=== PATIENT | male | born 1995 | race African-American/Black ===

== ENCOUNTER 2017-03-21 17:47 | Emergency (ER) | payer BC ==
[2017-03-21] MEDS ORDERED: Ketorolac INJ* 60 MG/2 ML VIAL IM ONE (19:48)
--- NOTE | 2017-03-21 20:43 | ED ---
Skin Complaint - HPI Summary HPI Summary: Patient is and presents with multiple small firm areas of redness under his right armpit that have become increasingly painful over the last week. He has had these in the past, but they typically resolve on their own. He denies increased redness, drainage or fevers. He does not have swelling in the right upper extremity. - History of Current Complaint Chief Complaint: EDRashSkinAbscess Time Seen by Provider: 03/21/17 19:01 Stated Complaint: LUMPS UNDER RIGHT ARM Hx Obtained From: Patient, Family/Engineer Onset/Duration: Started Weeks Ago - 1, Atraumatic, Still Present Timing: Constant Onset Severity: Mild Current Severity: Severe Pain Intensity: 8 Skin Location: Arm - right armpit Character: Redness, Painful Aggravating Symptom(s): Touch Alleviating Symptom(s): Nothing Associated Signs & Symptoms: Tenderness - Allergy/Home Medications Allergies/Adverse Reactions: Allergies Allergy/AdvReac Type Severity Reaction Status Date / Time No Known Allergies Allergy Verified 03/21/17 19:35 PMH/Surg Hx/FS Hx/Imm Hx Previously Healthy: Yes Endocrine/Hematology History: Denies: Hx Diabetes Cardiovascular History: Denies: Hx Congestive Heart Failure, Hx Hypertension History: Denies: Hx Renal Disease Infectious Disease History: No Infectious Disease History: Denies: Traveled Outside the [place] in Last 30 Days - Family History Known Family History: Positive: None - Social History Occupation: Employed Part-time Lives: With Family Alcohol Use: None Substance Use Type: Reports: None Smoking Status (MU): Never Smoked Tobacco Review of Systems Negative: Fever, Chills Positive: Other - multiple 1 cm firm areas of erythema without fluctuance or drainage in right armpit All Other Systems Reviewed And Are Negative: Yes Physical Exam Triage Information Reviewed: Yes Vital Signs On Initial Exam: Initial Vitals Temp Pulse Resp BP Pulse Ox 98.5 F 65 18 133/51 100 03/21/17 17:59 03/21/17 17:59 03/21/17 17:59 03/21/17 17:59 03/21/17 17:59 Vital Signs Reviewed: Yes Appearance: Positive: Well-Appearing, Well-Nourished, Pain Distress Skin: Positive: Warm, Skin Color Reflects Adequate Perfusion, Dry, Soft, Erythema @ - multiple 1 cm firm areas of erythema without fluctuance or drainage in right armpit Head/Face: Positive: Normal Head/Face Inspection Eyes: Positive: EOMI, VANESSA, Conjunctiva Clear ENT: Positive: Hearing grossly normal Neck: Positive: Supple, Nontender, No Lymphadenopathy Respiratory/Lung Sounds: Positive: Breath Sounds Present Cardiovascular: Positive: RRR Musculoskeletal: Positive: Strength/ROM Intact. Negative: Edema Left, Edema Right Neurological: Positive: Sensory/Motor Intact, Alert, Oriented to Person Place, Time, NV Bundle Intact Distally, Normal Gait Psychiatric: Positive: Affect/Mood Appropriate AVPU Assessment: Alert Diagnostics - Vital Signs Vital Signs Temp Pulse Resp BP Pulse Ox 03/21/17 19:29 98.5 F 65 16 133/51 99 03/21/17 17:59 98.5 F 65 18 133/51 100 - Laboratory Lab Statement: Any lab studies that have been ordered have been reviewed, and results considered in the medical decision making process. - Ultrasound No standard instances Ultrasound Interpretation: No Acute Changes Ultrasound Interpretation Completed By: Radiologist Course/Dx - Differential Diagnoses - Skin Complaint Differential Diagnoses: Abscess, Allergic Reaction, Cellulitis, Contact Dermatitis, Local Allergic Reaction, MRSA, Urticaria, Other - Diagnoses Provider Diagnoses: Hidradenitis suppurativa of right axilla Discharge - Discharge Plan Condition: Stable Disposition: HOME Prescriptions: Clindamycin CAP* [Cleocin 150 MG CAP*] 450 mg PO TID #90 cap Patient Education Materials: Hidradenitis Suppurativa (ED) Referrals: No Primary Care Phys,NOPCP [Primary Care Provider] - [facility] [place]Outside] Additional Instructions: Please call the number provided to establish care with a regular provider for follow-up care. Take the antibiotics prescribed until they are completely gone and begin taking Ibuprofen 600mg three times daily with meals tomorrow evening for the next 3-5 days to decrease pain and swelling. Apply warm compresses several times daily to encourage any drainage. Return to the emergency department if symptoms worsen.
--- NOTE | 2017-03-21 21:18 | RAD ---
Indication: Right axilla swelling. Real-time sonography in the right axilla was performed. Heterogeneous tissue is noted in the subcutaneous tissue where there is soft tissue swelling. This is consistent with a phlegmon. No definite drainable fluid collections are noted. IMPRESSION: PHLEGMONOUS CHANGE IN THE SUBCUTANEOUS TISSUE. NO DEFINITE DRAINABLE FLUID COLLECTIONS ARE NOTED.
[2017-03-21] MEDS ORDERED: Clindamycin CAP* 150 MG PO ONE (21:22)
[2017-03-21 22:35] VITALS: BP 134/70
== END 2017-03-21 22:00 | disposition home or self-care (01) ==
LOC: ED 17:47
DX: L73.2 Hidradenitis suppurativa (principal)
CPT/HCPCS: 99282; A9270-GY; J1885

== ENCOUNTER 2017-03-28 05:29 | Emergency (ER) | payer BC ==
[2017-03-28 06:09] VITALS: BP 124/68
[2017-03-28] MEDS ORDERED: Neomyc/Polym/HC 1% OTIC SUSP* **OTIC RIGHT EAR ONE (07:19)
--- NOTE | 2017-03-28 08:31 | ED ---
Callum Faust Salem, scribed for Jb Isbell MD on 03/28/17 at 0719 . Throat Pain/Nasal Congestion - HPI Summary HPI Summary: Patient is a 21 y/o M who presents to the ED with a right ear complaint. He reports numbness and blockage of the right ear for the past 24 hours. He also reports jaw pain and loss of hearing, but denies rhinorrhea, chest congestion, cough, or sore throat. He states that pain is enough to keep him up at night. PMHx of swimmers ear. 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 - History of Current Complaint Chief Complaint: EDEarPain Time Seen by Provider: 03/28/17 07:11 Hx Obtained From: Patient Onset/Duration: Gradual Onset, Lasting Days, Still Present Severity: Moderate Associated Signs And Symptoms: Positive: Negative Cough: None - Allergies/Home Medications Allergies/Adverse Reactions: Allergies Allergy/AdvReac Type Severity Reaction Status Date / Time No Known Allergies Allergy Verified 03/21/17 19:35 PMH/Surg Hx/FS Hx/Imm Hx Endocrine/Hematology History: Denies: Hx Diabetes Cardiovascular History: Denies: Hx Congestive Heart Failure, Hx Hypertension Respiratory History: Denies: Hx Asthma History: Denies: Hx Renal Disease - Surgical History Surgery Procedure, Year, and Place: None. Infectious Disease History: No Infectious Disease History: Denies: Traveled Outside the [place] in Last 30 Days - Family History Known Family History: Positive: Other - No ear related Fhx. - Social History Alcohol Use: None Hx Substance Use: No Substance Use Type: Reports: None Hx Tobacco Use: No Smoking Status (MU): Never Smoked Tobacco Review of Systems Positive: Other - Loss of hearing. . Negative: Sore Throat, Nasal Discharge Cardiovascular: Other - No chest congestion. Negative: Cough Positive: Numbness All Other Systems Reviewed And Are Negative: Yes Physical Exam Triage Information Reviewed: Yes Vital Signs On Initial Exam: Initial Vitals Temp Pulse Resp BP Pulse Ox 97.7 F 71 18 112/52 98 03/28/17 05:33 03/28/17 05:33 03/28/17 05:33 03/28/17 05:33 03/28/17 05:33 Vital Signs Reviewed: Yes Appearance: Positive: Well-Appearing, No Pain Distress Skin: Positive: Warm, Skin Color Reflects Adequate Perfusion, Dry Head/Face: Positive: Normal Head/Face Inspection Eyes: Positive: EOMI, VANESSA ENT: Positive: Other - Clear rhinorrhea. Left TM: nml. Left ear canal: moist. Right TM: cannot be visualized. There is yellow discharge in right ear canal. Tender to traction on pinna, on right. Neck: Positive: Supple, Nontender Respiratory/Lung Sounds: Positive: Clear to Auscultation, Breath Sounds Present Cardiovascular: Positive: RRR Abdomen Description: Positive: Nontender, Soft Musculoskeletal: Positive: Normal, Strength/ROM Intact Neurological: Positive: Normal, Sensory/Motor Intact, Alert, Oriented to Person Place, Time Psychiatric: Positive: Affect/Mood Appropriate - Raymundo Coma Scale Coma Scale Total: 15 Diagnostics - Vital Signs Vital Signs Temp Pulse Resp BP Pulse Ox 03/28/17 06:02 74 98 03/28/17 06:00 124/68 03/28/17 05:50 98.4 F 80 16 124/84 98 03/28/17 05:33 97.7 F 71 18 112/52 98 - Laboratory Lab Statement: Any lab studies that have been ordered have been reviewed, and results considered in the medical decision making process. EENT Course/Dx - Course Course Of Treatment: NO CRITICAL CARE TIME. DISCHARGE HOME STABLE. - Diagnoses Provider Diagnoses: Otitis externa of right ear Discharge - Discharge Plan Condition: Stable Disposition: HOME Patient Education Materials: Otitis Externa (ED) Referrals: No Primary Care Phys,NOPCP [Primary Care Provider] - Additional Instructions: FOLLOW UP WITH YOUR DOCTOR. USE THE ANTIBIOTIC DROPS DIRECTED. ALSO USE SWIM EAR DROPS ON A REGULAR BASIS TO HELP AVOID FURTHER EAR INFECTIONS. THESE DROPS ARE AVAILABLE AT THE PHARMACY, THEY CONTAIN GLYCERIN AND ALCOHOL. RETURN TO THE EMERGENCY DEPARTMENT FOR ANY WORSENING OF YOUR CONDITION OR QUESTIONS OR CONCERNS. The documentation as recorded by the Callum ratliff Salem accurately reflects the service I personally performed and the decisions made by me, Jb Isbell MD.
== END 2017-03-28 07:52 | disposition home or self-care (01) ==
LOC: ED 05:29
DX: H60.91 Unspecified otitis externa, right ear (principal)
CPT/HCPCS: 99281; A9270-GY